=== PATIENT | female | born 1935 | race Caucasian/White ===

== ENCOUNTER 2021-03-10 11:41 | Emergency (ER) | payer MEDICARE, OTHER ==
[~2021-03-10] VITALS: Ht 154.9 cm; Wt 57.2 kg
[2021-03-10] MEDS ORDERED: IV NORMAL SALINE 1000ML BAG 1,000 ML IV ONE (12:00)
[2021-03-10 12:22] LABS: BASO % 1 % (0-3); EOS # 0.1 x10^3/uL (0.0-0.7); EOS % 1 % (0-3); HEMATOCRIT 44.3 % (36.0-47.0); HEMOGLOBIN 14.9 g/dL (12.0-15.5); LYMPH # 1.5 x10^3/uL (1.0-4.8); LYMPH % 15 % (24-48); MEAN CORPUSCULAR HEMOGLOBIN 28 pg (25-35); MEAN CORPUSCULAR HGB CONC 34 g/dL (31-37); MEAN CORPUSCULAR VOLUME 83 fL (79-100); MONO # 0.8 x10^3/uL (0.0-1.1); MONO % 8 % (0-9); NEUT # 7.3 x10^3/uL (1.8-7.7); NEUT % 75 % (31-73); PLATELET COUNT 238 x10^3/uL (140-400); RED BLOOD COUNT 5.31 x10^6/uL (3.50-5.40); RED CELL DISTRIBUTION WIDTH 13.7 % (11.5-14.5); WHITE BLOOD COUNT 9.8 x10^3/uL (4.0-11.0)
--- NOTE | 2021-03-10 12:25 | RAD ---
EXAM: Chest, single view. HISTORY: Palpitations. COMPARISON: None. FINDINGS: Frontal view of the chest is obtained. There is no infiltrate, pleural effusion or pneumoth orax. There is a prominent cardiac silhouette. IMPRESSION: No acute pulmonary finding. Electronically signed by: Lisa Montejo MD (03/10/2021 12:22 PM) [id number]
[2021-03-10 12:33] LABS: PROTHROMBIN TIME PATIENT 13.9 SEC (11.7-14.0)
[2021-03-10 12:36] LABS: ANION GAP 9 (6-14); BLOOD UREA NITROGEN 14 mg/dL (7-20); BUN/CREATININE RATIO 18 (6-20); CALCIUM 9.1 mg/dL (8.5-10.1); CARBON DIOXIDE 32 mmol/L (21-32); CHLORIDE 100 mmol/L (98-107); CREATININE 0.8 mg/dL (0.6-1.0); GFR 67.8; GLUCOSE 120 mg/dL (70-99); POTASSIUM 3.5 mmol/L (3.5-5.1); SODIUM 141 mmol/L (136-145)
[2021-03-10 12:37] LABS: D-DIMER 0.97 ug/mlFEU (0.00-0.50)
[2021-03-10 12:44] LABS: ALBUMIN 3.8 g/dL (3.4-5.0); ALK PHOS 66 U/L (46-116); ALT (SGPT) 22 U/L (14-59); AST (SGOT) 18 U/L (15-37); DIG 0.8 ng/mL (0.9-2.0); TOTAL BILIRUBIN 0.6 mg/dL (0.2-1.0); TOTAL PROTEIN 7.6 g/dL (6.4-8.2)
--- NOTE | 2021-03-10 13:14 | PHYS DOC ---
Past Medical History Additional Past Medical Histor: TACHYCARDIA, IBS Past Surgical History: No Surgical History Smoking Status: Never Smoker Alcohol Use: None Adult General Chief Complaint Chief Complaint: RAPID HEART RATE HPI HPI Patient is a 86 year old female presenting to the emergency department from her doctor's office for evaluation of tachycardia. She was at her primary's for a routine follow-up and was asymptomatic and had no complaints but the primary doctor saw that her heart rate was 150 and called 911. Patient denies history of current atrial fibrillation but she says 30 years ago she had atrial fibrillation and she is still on digoxin. Patient says that she does feel very anxious as she lost 2 friends from [place] [employer] recently and that being in the emergency department makes her feel more anxious. She usually takes Valium at home for anxiety but she says she does not take it on a regular basis and does not think that she would be withdrawing. Patient denies any pain fevers chills nausea or vomiting and she is in no acute distress with normal vital signs other than the tachycardia and systolic hypertension noted. Review of Systems Review of Systems Constitutional: Denies fever or chills [] Eyes: Denies change in visual acuity, redness, or eye pain [] HENT: Denies nasal congestion or sore throat [] Respiratory: Denies cough or shortness of breath [] Cardiovascular: No additional information not addressed in HPI [] GI: Denies abdominal pain, nausea, vomiting, bloody stools or diarrhea [] : Denies dysuria or hematuria [] Musculoskeletal: Denies back pain or joint pain [] Integument: Denies rash or skin lesions [] Neurologic: Denies headache, focal weakness or sensory changes [] Endocrine: Denies polyuria or polydipsia [] All other systems were reviewed and found to be within normal limits, except as documented in this note. Current Medications Current Medications Current Medications Medications (Trade) Dose Ordered Sig/Antonio Start Time Stop Time Status Last Admin Dose Admin Info (CONTRAST GIVEN -- Rx MONITORING) 1 each PRN DAILY PRN 03/10/21 14:45 03/12/21 14:44 Iohexol (Omnipaque 350 Mg/ml) 100 ml 1X ONCE 03/10/21 14:30 03/10/21 14:35 DC 03/10/21 14:46 100 ML Lorazepam (Ativan Inj) 0.5 mg 1X ONCE 03/10/21 12:00 1/13/22 12:01 DC 03/10/21 12:00 0.5 MG Sodium Chloride 1,000 ml @ 1,000 mls/hr 1X ONCE 03/10/21 12:00 03/10/21 12:59 DC 03/10/21 12:00 1,000 MLS/HR Allergies Allergies Allergies Coded Allergies Type Severity Reaction Last Updated Verified morphine Allergy Mild 03/10/21 Yes Physical Exam Physical Exam Constitutional: Well developed, well nourished, no acute distress, non-toxic appearance. [] HENT: Normocephalic, atraumatic, bilateral external ears normal, oropharynx moist, no oral exudates, nose normal. [] Eyes: PERRLA, EOMI, conjunctiva normal, no discharge. [] Neck: Normal range of motion, no tenderness, supple, no stridor. [] Cardiovascular: Tachycardic rate regular rhythm, no murmur [] Lungs & Thorax: Bilateral breath sounds clear to auscultation [] Abdomen: Bowel sounds normal, soft, no tenderness, no masses, no pulsatile masses. [] Skin: Warm, dry, no erythema, no rash. [] Back: No tenderness, no CVA tenderness. [] Extremities: No tenderness, no cyanosis, no clubbing, ROM intact, no edema. [] Neurologic: Alert and oriented X 3, normal motor function, normal sensory function, no focal deficits noted. [] Psychologic: Affect normal, judgement normal, mood normal. [] Current Patient Data Vital Signs Vital Signs Date Time Temp Pulse Resp B/P (MAP) Pulse Ox O2 Delivery O2 Flow Rate FiO2 03/10/21 13:08 124 97 03/10/21 12:58 14 03/10/21 11:46 98.6 182/85 (117) Room Air 98.6 Lab Values Laboratory Tests Test 03/10/21 12:13 White Blood Count 9.8 x10^3/uL (4.0-11.0) Red Blood Count 5.31 x10^6/uL (3.50-5.40) Hemoglobin 14.9 g/dL (12.0-15.5) Hematocrit 44.3 % (36.0-47.0) Mean Corpuscular Volume 83 fL (79-100) Mean Corpuscular Hemoglobin 28 pg (25-35) Mean Corpuscular Hemoglobin Concent 34 g/dL (31-37) Red Cell Distribution Width 13.7 % (11.5-14.5) Platelet Count 238 x10^3/uL (140-400) Neutrophils (%) (Auto) 75 % (31-73) H Lymphocytes (%) (Auto) 15 % (24-48) L Monocytes (%) (Auto) 8 % (0-9) Eosinophils (%) (Auto) 1 % (0-3) Basophils (%) (Auto) 1 % (0-3) Neutrophils # (Auto) 7.3 x10^3/uL (1.8-7.7) Lymphocytes # (Auto) 1.5 x10^3/uL (1.0-4.8) Monocytes # (Auto) 0.8 x10^3/uL (0.0-1.1) Eosinophils # (Auto) 0.1 x10^3/uL (0.0-0.7) Basophils # (Auto) 0.0 x10^3/uL (0.0-0.2) Prothrombin Time 13.9 SEC (11.7-14.0) Prothrombin Time INR 1.1 (0.8-1.1) Activated Partial Thromboplast Time 31 SEC (24-38) D-Dimer (Jazmine) 0.97 ug/mlFEU (0.00-0.50) H Sodium Level 141 mmol/L (136-145) Potassium Level 3.5 mmol/L (3.5-5.1) Chloride Level 100 mmol/L (98-107) Carbon Dioxide Level 32 mmol/L (21-32) Anion Gap 9 (6-14) Blood Urea Nitrogen 14 mg/dL (7-20) Creatinine 0.8 mg/dL (0.6-1.0) Estimated GFR (Cockcroft-Gault) 67.8 BUN/Creatinine Ratio 18 (6-20) Glucose Level 120 mg/dL (70-99) H Calcium Level 9.1 mg/dL (8.5-10.1) Total Bilirubin 0.6 mg/dL (0.2-1.0) Aspartate Amino Transferase (AST) 18 U/L (15-37) Alanine Aminotransferase (ALT) 22 U/L (14-59) Alkaline Phosphatase 66 U/L (46-116) Troponin I High Sensitivity 6 ng/L (4-50) IC-Nej-U-Type Natriuretic Peptide 136 pg/mL (0-449) Total Protein 7.6 g/dL (6.4-8.2) Albumin 3.8 g/dL (3.4-5.0) Albumin/Globulin Ratio 1.0 (1.0-1.7) Thyroid Stimulating Hormone (TSH) 3.046 uIU/mL (0.358-3.74) Digoxin Level 0.8 ng/mL (0.9-2.0) L Digoxin Last Dose Date Unknown Digoxin Last Dose Time Unknown Laboratory Tests 03/10/21 12:13 Laboratory Tests 03/10/21 12:13 EKG EKG Sinus tachycardia at 128 bpm with a leftward axis no ST elevation or depression with normal T waves. Of note there is significant baseline wandering. Atrial flutter is a consideration given his regular but less likely atrial fibrillation. Radiology/Procedures Radiology/Procedures [] Course & Med Decision Making Course & Med Decision Making I will check labs imaging treat symptoms and reassess. Patient's work-up was unremarkable except for a mildly elevated D-dimer. A CT scan was done that showed no acute pathology but I did discuss incidental finding of pulmonary nodule and the need for follow-up with Dr. Zhang. Patient's heart rate improved to 110 and her blood pressure was 169/75 and patient continues to be completely asymptomatic and is asking to go home. I did speak to Dr. Zhang and he says that she does have a history of tachycardia and did not feel that she met any requirements for admission. I asked if I should adjust her medications including her digoxin given it was low and he did not recommend that at this time but he would followed up as an outpatient. She continues to be at sinus tachycardia with no signs of arrhythmia or heart failure. I spoke to patient and daughter about findings and the need to follow- up with Dr. Zhang. I recommended calling the clinic today and arranging follow-up and I told her if she starts having chest pain shortness of breath or persistent tachycardia above 120 that she should come back to the emergency department immediately. Patient aware and agreeable with plan for discharge and verbalized understanding of the above instructions. Dragon Disclaimer Dragon Disclaimer This electronic medical record was generated, in whole or in part, using a voice recognition dictation system. Departure Departure Impression: Primary Impression: Tachycardia Additional Impression: H/O anxiety disorder Disposition: HOME / SELF CARE / HOMELESS Condition: STABLE Referrals: LINN VALLE MD (PCP) Patient Instructions: Nonspecific Tachycardia Additional Instructions: Call today to get follow up with Dr. Zhang. Come back to the emergency department with any concerns. Problem Qualifiers BREANNE ALDANA DO Mar 10, 2021 13:14
[2021-03-10] MEDS ORDERED: IOHEXOL 350 MG/ML 100 ML VIAL. IV ONE (14:30)
[2021-03-10] MEDS ORDERED: CONTRAST GIVEN. MC PRN (14:45)
--- NOTE | 2021-03-10 15:06 | RAD ---
CTA CHEST INDICATION: tachycardia, elevated dimer Comparison: Chest radiograph 03/10/2021. TECHNIQUE: Following the uneventful administration of intravenous contrast, 100 cc Omnipaque 350, axi al CT sections were obtained through the lungs and upper abdomen. Multiplanar reconstructions and MIP images were obtained. PQRS compliance statement: One or more of the following individualized dose reduction techniques were utilized for this examinat ion: 1. Automated exposure control 2. Adjustment of the mA and/or kV according to patient size 3. Use of iterative reconstruction technique FINDINGS: Pulmonary arteries: No evidence of pulmonary thromboembolic disease Lungs and Airways: No pulmonary mass or consolidation. Bibasilar dependent and subsegmental atelectas is. Left lower lobe 5 mm subpleural nodule (series 3 image 90). Scattered endobronchial mucous pluggi ng. Pleura: The pleural spaces are normal. Heart and Mediastinum: The visualized thyroid is normal in size and attenuation. No axillary or supra clavicular lymphadenopathy. No mediastinal, hilar or retrocrural lymphadenopathy. Normal cardiac size . No pericardial effusion. Coronary artery atherosclerotic disease. Atherosclerosis of the thoracic a kalpana. Abdomen: Cholelithiasis. Bones and Soft Tissues: Degenerative changes of the spine. IMPRESSION: 1. No evidence of pulmonary thromboembolic disease. 2. No pulmonary mass or consolidation. 3. Left lower lobe indeterminate 5 mm nodule. Consider optional 12 month follow-up chest CT if patien t has risk factors (history of smoking, history of malignancy, etc.) 4. Cholelithiasis. Electronically signed by: Jaime Smith MD (03/10/2021 3:03 PM) [id number]
[2021-03-10 15:28] VITALS: BP 169/75
--- NOTE | 2021-03-10 15:35 | EKG ---
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
== END 2021-03-10 15:59 | disposition home or self-care (01) ==
LOC: ER 11:41
DX: R00.0 Tachycardia, unspecified (principal); K58.9 Irritable bowel syndrome, unspecified; F41.9 Anxiety disorder, unspecified
CPT/HCPCS: 36415; 71045; 71275; 80053; 80162; 83880; 84443; 84484; 85025; 85379; 85610; 85730; 93005; 96361; 96374; 99285; J2060; J7030; Q9967